=== PATIENT | male | born 1935 | race Asian ===

== ENCOUNTER 2017-04-26 22:12 | Inpatient (IN) | payer MEDICARE, OTHER ==
[~2017-04-26] VITALS: Ht 167.6 cm; Wt 62.7 kg
[~2017-04-26 22:12] MED LIST: DUTA.5 PO; LOSA50TA37 PO
[2017-04-26 22:56] LABS: BASOPHILS # (AUTO) 0.01 K/uL (0.00-0.20); BASOPHILS % (AUTO) 0.1 % (0.0-2.0); EOSINOPHILS # (AUTO) 0.14 K/uL (0.00-0.70); EOSINOPHILS % (AUTO) 1.33 % (1.0-6.0); LYMPHOCYTES # (AUTO) 0.3 K/uL (1.0-4.8); LYMPHOCYTES % (AUTO) 2.5 % (22.0-44.0); MEAN CORPUSCULAR HEMOGLOBIN 33.7 pg (26.0-34.0); MEAN CORPUSCULAR HGB CONC 33.4 G/dL (31.0-37.0); MEAN CORPUSCULAR VOLUME 101 fL (80-100); MONOCYTES # (AUTO) 0.8 K/uL (0.1-1.0); MONOCYTES % (AUTO) 8.2 % (2.0-9.0); NEUTROPHILS # (AUTO) 9.1 K/uL (1.8-7.7); PLATELET COUNT (AUTO) 213 K/uL (150-450); RED BLOOD CELL COUNT(AUTO) 6.22 MIL/uL (4.50-5.90); RED CELL DISTRIBUTION WIDTH 12.8 % (11.5-14.5); WHITE BLOOD COUNT (AUTO) 10.3 K/uL (4.5-11.0)
[2017-04-26 23:01] LABS: CALCIUM, TOTAL 9.7 mg/dL (8.8-10.5); CREATININE 1.95 mg/dL (0.60-1.30); POTASSIUM 4.6 mmol/L (3.5-5.1)
[2017-04-26 23:07] LABS: ALBUMIN 3.9 g/dL (3.4-5.0); BILIRUBIN,TOTAL 0.8 mg/dL (0.1-1.0); TOTAL PROTEIN, SERUM 7.7 g/dL (6.4-8.2)
[2017-04-26 23:09] LABS: HEMATOCRIT 62.8 % (41-53); NEUTROPHILS % (AUTO) 87.9 % (40.0-70.0)
[2017-04-26] MEDS ORDERED: SODIUM CHLORIDE 0.9% 1,000 ML IV ONE (23:15)
[2017-04-26] MEDS ORDERED: ACETAMINOPHEN 325 MG TABLET PO ONE (23:45)
[2017-04-26 23:50] LABS: PROTHROMBIN TIME 10.6 SEC (9.4-11.6)
[2017-04-27 00:03] LABS: ORIG DRAW (USER) PTCARESTAF
[2017-04-27] MEDS ORDERED: 0.9% SODIUM CHLORIDE 10 ML SYRINGE IVP PRN ×2 (00:30→01:30)
[2017-04-27] MEDS ORDERED: ACETAMINOPHEN 325 MG TABLET PO PRN (00:30)
[2017-04-27] MEDS ORDERED: ONDANSETRON HCL 4 MG/2 ML VIAL IVP PRN ×2 (00:30→01:30)
[2017-04-27 00:49] VITALS: BP 129/69
[2017-04-27] MEDS ORDERED: LORazepam 2 MG/ML VIAL IM PRN (01:15)
[2017-04-27] MEDS ORDERED: OxyCODONE HCL/ACETAMINOPHEN 5-325 MG TABLET PO PRN ×2 (01:30)
[2017-04-27] MEDS: SODIUM CHLORIDE 0.9% 1,000 ML IV SCH ×3 (01:41→22:27)
[2017-04-27] MEDS: DOCUSATE SODIUM 100 MG CAPSULE PO SCH ×3 (01:43→20:00)
[2017-04-27 07:36] VITALS: BP 128/77
[2017-04-27] MEDS: PANTOPRAZOLE SODIUM 40 MG/VIAL IVP SCH (07:56)
[2017-04-27 11:46] VITALS: BP 119/71
[2017-04-27] MEDS ORDERED: SODIUM CHLORIDE 0.9% 1,000 ML IV ONE (14:45)
[2017-04-27 15:42] VITALS: BP 123/69
[2017-04-27 20:00] VITALS: BP 120/53
[2017-04-27 23:48] VITALS: BP 132/76
[2017-04-28 04:22] VITALS: BP 137/74
[2017-04-28 06:13] LABS: BASOPHILS % (AUTO) 0.2 % (0.0-2.0); EOSINOPHILS % (AUTO) 6.9 % (1.0-6.0); HEMATOCRIT 52.5 % (41-53); HEMOGLOBIN 17.9 g/dL (13.5-17.5); LYMPHOCYTES # (AUTO) 1.7 K/uL (1.0-4.8); LYMPHOCYTES % (AUTO) 26.1 % (22.0-44.0); MEAN CORPUSCULAR HEMOGLOBIN 34.4 pg (26.0-34.0); MEAN CORPUSCULAR HGB CONC 34.1 G/dL (31.0-37.0); MEAN CORPUSCULAR VOLUME 101 fL (80-100); MONOCYTES # (AUTO) 0.8 K/uL (0.1-1.0); MONOCYTES % (AUTO) 12.1 % (2.0-9.0); NEUTROPHILS # (AUTO) 3.6 K/uL (1.8-7.7); NEUTROPHILS % (AUTO) 54.7 % (40.0-70.0); PLATELET COUNT (AUTO) 199 K/uL (150-450); RED CELL DISTRIBUTION WIDTH 13.4 % (11.5-14.5); WHITE BLOOD COUNT (AUTO) 6.6 K/uL (4.5-11.0)
[2017-04-28 06:33] LABS: CREATININE 1.5 mg/dL (0.60-1.30); POTASSIUM 3.8 mmol/L (3.5-5.1)
[2017-04-28] MEDS: SODIUM CHLORIDE 0.9% 1,000 ML IV SCH ×2 (07:15→16:42)
[2017-04-28] MEDS: PANTOPRAZOLE SODIUM 40 MG/VIAL IVP SCH (08:21)
[2017-04-28] MEDS: DOCUSATE SODIUM 100 MG CAPSULE PO SCH ×2 (08:21→20:43)
[2017-04-28 11:37] VITALS: BP 142/74
[2017-04-28 15:42] VITALS: BP 141/80
[2017-04-28 19:35] VITALS: BP 144/77
[2017-04-28 23:30] VITALS: BP 142/82
[2017-04-29 04:48] VITALS: BP 137/84
[2017-04-29 07:36] VITALS: BP 135/79
[2017-04-29] MEDS: DOCUSATE SODIUM 100 MG CAPSULE PO SCH (07:52)
[2017-04-29] MEDS: PANTOPRAZOLE SODIUM 40 MG/VIAL IVP SCH (07:52)
[2017-04-29] MEDS ORDERED: AMLO2.5T PO (07:56)
== END 2017-04-29 09:05 | disposition home or self-care (01) | DRG 438 ==
LOC: EMS 22:13 → 6N 23:34
PROVIDERS: ADMIT Internal Medicine; ATTEND Internal Medicine
DX: K85.20 Alcohol induced acute pancreatitis without necrosis or infection (principal); N17.0 Acute kidney failure with tubular necrosis; D75.1 Secondary polycythemia; N18.9 Chronic kidney disease, unspecified; I12.9 Hypertensive chronic kidney disease with stage 1 through stage 4 chronic kidney disease, or unspecified chronic kidney disease; F10.20 Alcohol dependence, uncomplicated; Z87.891 Personal history of nicotine dependence
CPT/HCPCS: 74176; 83605; 87040; 93005; 96360; 99285; C9113; J7030

== ENCOUNTER 2018-05-14 08:28 | Inpatient (IN) | payer MEDICARE, OTHER ==
[~2018-05-14] VITALS: Ht 157.5 cm; Wt 61.8 kg
[~2018-05-14 08:28] MED LIST changes: +AMLO2.5T3 PO; -DUTA.5 PO; -LOSA50TA37 PO
[2018-05-14] MEDS ORDERED: ACETAMINOPHEN 1000 MG/ISO-OSM 100 ML IV ONE (09:15)
[2018-05-14] MEDS ORDERED: SODIUM CHLORIDE 0.9% 1,000 ML IV ONE (09:15)
[2018-05-14 09:59] LABS: CALCIUM, TOTAL 8.8 mg/dL (8.8-10.5); CREATININE 1.78 mg/dL (0.60-1.30); POTASSIUM 3.7 mmol/L (3.5-5.1)
[2018-05-14] MEDS ORDERED: CHOL50004 PO (09:59)
[2018-05-14] MEDS ORDERED: ASPI-1182 PO (09:59)
[2018-05-14] MEDS ORDERED: AMLO-512 PO (09:59)
[2018-05-14] MEDS ORDERED: LOSA50TA64 PO (09:59)
[2018-05-14 10:04] LABS: ALBUMIN 2.7 g/dL (3.4-5.0); BILIRUBIN,TOTAL 0.8 mg/dL (0.1-1.0); TOTAL PROTEIN, SERUM 6.5 g/dL (6.4-8.2)
[2018-05-14 10:07] LABS: LACTIC ACID 1.2 mmol/L (0.4-2.0)
[2018-05-14 10:08] LABS: APPEARANCE,URINE CLEAR (CLEAR); BILIRUBIN,URINE NEGATIVE (NEGATIVE); GLUCOSE, URINE (UA) NEGATIVE (NEGATIVE); KETONES,URINE NEGATIVE (NEGATIVE); LEUKOCYTE ESTERASE ,URINE NEGATIVE (NEGATIVE); NITRATE,URINE NEGATIVE (NEGATIVE); OCCULT BLOOD,URINE SMALL (NEGATIVE); PH,URINE 5.5 (5.0-8.0); PROTEIN,URINE SEE CONFIRM (NEGATIVE); UROBILINOGEN,URINE 0.2 mg/dL (<=1.0)
[2018-05-14 10:10] LABS: SULFOSALICYLIC ACID,URINE Trace (Negative)
[2018-05-14 10:12] LABS: BACTERIA,URINE None Seen /HPF (None Seen); RBC,URINE 0-2 /HPF (0-2); WBC,URINE None Seen /HPF (0-5)
[2018-05-14 10:13] LABS: BASOPHILS % (AUTO) 0.4 % (0.0-2.0); EOSINOPHILS % (AUTO) 0.9 % (1.0-6.0); HEMATOCRIT 31.9 % (41-53); HEMOGLOBIN 11.1 g/dL (13.5-17.5); LYMPHOCYTES # (AUTO) 0.7 K/uL (1.0-4.8); LYMPHOCYTES % (AUTO) 8.4 % (22.0-44.0); MEAN CORPUSCULAR HGB CONC 34.9 G/dL (31.0-37.0); MEAN CORPUSCULAR VOLUME 95 fL (80-100); MONOCYTES # (AUTO) 0.8 K/uL (0.1-1.0); NEUTROPHILS # (AUTO) 6.5 K/uL (1.8-7.7); NEUTROPHILS % (AUTO) 80.3 % (40.0-70.0); PLATELET COUNT (AUTO) 140 K/uL (150-450); RED BLOOD CELL COUNT(AUTO) 3.36 MIL/uL (4.50-5.90); RED CELL DISTRIBUTION WIDTH 14.3 % (11.5-14.5)
[2018-05-14] MEDS ORDERED: ACETAMINOPHEN 325 MG TABLET PO PRN (11:15)
[2018-05-14] MEDS ORDERED: ONDANSETRON HCL 4 MG/2 ML VIAL IVP PRN ×2 (11:15→16:30)
[2018-05-14] MEDS ORDERED: 0.9% SODIUM CHLORIDE 10 ML SYRINGE IVP PRN ×2 (11:15→16:30)
[2018-05-14] MEDS ORDERED: AZITHROMYCIN 500 MG/NS 250 ML IV ONE (11:15)
[2018-05-14] MEDS ORDERED: CefTRIAXone 1 GM/DEXTROSE 50 ML IV ONE (11:15)
[2018-05-14 12:32] LABS: INFLUENZA TYPE A NEGATIVE FOR TYPE A (NEGATIVE); INFLUENZA TYPE B NEGATIVE FOR TYPE B (NEGATIVE)
[2018-05-14 14:25] VITALS: BP 132/68
[2018-05-14 15:30] VITALS: BP 136/64
[2018-05-14] MEDS ORDERED: OxyCODONE HCL/ACETAMINOPHEN 5-325 MG TABLET PO PRN ×2 (16:30)
[2018-05-14] MEDS: PANTOPRAZOLE SODIUM 40 MG/VIAL IVP SCH (17:04)
[2018-05-14] MEDS: AmLODIPine BESYLATE 10 MG TABLET PO SCH (17:04)
[2018-05-14] MEDS: ASPIRIN 81 MG EC TABLET PO SCH (17:04)
[2018-05-14 19:18] VITALS: BP 115/66
[2018-05-14] MEDS: ALBUTEROL SULFATE 2.5 MG/0.5 ML NEB SOLUTION NEB SCH (19:56)
[2018-05-14] MEDS: IPRATROPIUM BROMIDE 0.5 MG/2.5 ML NEB SOLUTION NEB SCH (19:56)
[2018-05-14] MEDS: DOCUSATE SODIUM 100 MG CAPSULE PO SCH (20:55)
[2018-05-14] MEDS: LOSARTAN POTASSIUM 50 MG TABLET PO SCH (20:55)
[2018-05-14 23:39] VITALS: BP 145/79
[2018-05-15] MEDS: ALBUTEROL SULFATE 2.5 MG/0.5 ML NEB SOLUTION NEB SCH ×4 (02:50→20:18)
[2018-05-15] MEDS: IPRATROPIUM BROMIDE 0.5 MG/2.5 ML NEB SOLUTION NEB SCH ×4 (02:50→20:18)
[2018-05-15 04:41] VITALS: BP 101/69
[2018-05-15 06:58] LABS: BASOPHILS % (AUTO) 0.4 % (0.0-2.0); EOSINOPHILS % (AUTO) 1.3 % (1.0-6.0); HEMOGLOBIN 10.4 g/dL (13.5-17.5); LYMPHOCYTES # (AUTO) 1.7 K/uL (1.0-4.8); LYMPHOCYTES % (AUTO) 22.5 % (22.0-44.0); MEAN CORPUSCULAR HEMOGLOBIN 32.4 pg (26.0-34.0); MEAN CORPUSCULAR HGB CONC 34.6 G/dL (31.0-37.0); MEAN CORPUSCULAR VOLUME 94 fL (80-100); MONOCYTES % (AUTO) 25.8 % (2.0-9.0); NEUTROPHILS # (AUTO) 3.9 K/uL (1.8-7.7); PLATELET COUNT (AUTO) 148 K/uL (150-450); RED CELL DISTRIBUTION WIDTH 14.4 % (11.5-14.5)
[2018-05-15 07:07] LABS: CALCIUM, TOTAL 8.5 mg/dL (8.8-10.5); CREATININE 1.54 mg/dL (0.60-1.30); POTASSIUM 3.4 mmol/L (3.5-5.1)
[2018-05-15 08:00] VITALS: BP 130/70
[2018-05-15] MEDS ORDERED: SODIUM CHLORIDE 0.9% 250 ML IV ONE (08:14)
[2018-05-15] MEDS: ASPIRIN 81 MG EC TABLET PO SCH (09:01)
[2018-05-15] MEDS: CefTRIAXone 1 GM/DEXTROSE 50 ML IV SCH (09:01)
[2018-05-15] MEDS: AmLODIPine BESYLATE 10 MG TABLET PO SCH (09:01)
[2018-05-15] MEDS: PANTOPRAZOLE SODIUM 40 MG/VIAL IVP SCH (09:01)
[2018-05-15] MEDS: DOCUSATE SODIUM 100 MG CAPSULE PO SCH ×2 (09:01→21:00)
[2018-05-15] MEDS: LOSARTAN POTASSIUM 50 MG TABLET PO SCH ×2 (09:01→21:13)
[2018-05-15] MEDS ORDERED: IPRATROPIUM BROMIDE 0.5 MG/2.5 ML NEB SOLUTION NEB PRN (10:15)
[2018-05-15] MEDS ORDERED: ALBUTEROL SULFATE 2.5 MG/0.5 ML NEB SOLUTION NEB PRN (10:15)
[2018-05-15] MEDS ORDERED: POTASSIUM CHL 10 MEQ/WATER 50 ML IV PRN (10:30)
[2018-05-15] MEDS ORDERED: POTASSIUM CHLORIDE 20 MEQ ER TABLET PO PRN (10:30)
[2018-05-15] MEDS: AZITHROMYCIN 250 MG in SODIUM CHLORIDE 0.9% 150 ML IV SCH (11:14)
[2018-05-15] MEDS: MethylPREDNISolone SOD SUCC 125 MG/2 ML VIAL IVP SCH ×2 (11:14→17:50)
[2018-05-15 11:49] VITALS: BP 147/73
[2018-05-15 16:38] VITALS: BP 142/76
[2018-05-15] MEDS: BENZONATATE 100 MG CAPSULE PO SCH ×2 (17:50→21:12)
[2018-05-15 20:06] VITALS: BP 138/66
[2018-05-15] MEDS: GuaiFENesin SR 600 MG ER TABLET PO SCH (21:12)
[2018-05-16 00:22] VITALS: BP 129/71
[2018-05-16] MEDS: MethylPREDNISolone SOD SUCC 125 MG/2 ML VIAL IVP SCH ×3 (00:38→11:54)
[2018-05-16] MEDS: ALBUTEROL SULFATE 2.5 MG/0.5 ML NEB SOLUTION NEB SCH ×2 (01:39→08:57)
[2018-05-16] MEDS: IPRATROPIUM BROMIDE 0.5 MG/2.5 ML NEB SOLUTION NEB SCH ×2 (01:39→08:57)
[2018-05-16 04:13] VITALS: BP 133/77
[2018-05-16 07:11] LABS: BASOPHILS % (AUTO) 0.2 % (0.0-2.0); EOSINOPHILS % (AUTO) 0 % (1.0-6.0); HEMATOCRIT 33.7 % (41-53); HEMOGLOBIN 11.6 g/dL (13.5-17.5); LYMPHOCYTES # (AUTO) 1.2 K/uL (1.0-4.8); LYMPHOCYTES % (AUTO) 15.8 % (22.0-44.0); MEAN CORPUSCULAR HEMOGLOBIN 32.7 pg (26.0-34.0); MEAN CORPUSCULAR HGB CONC 34.4 G/dL (31.0-37.0); MEAN CORPUSCULAR VOLUME 95 fL (80-100); MONOCYTES # (AUTO) 0.4 K/uL (0.1-1.0); MONOCYTES % (AUTO) 4.6 % (2.0-9.0); NEUTROPHILS # (AUTO) 6.1 K/uL (1.8-7.7); NEUTROPHILS % (AUTO) 79.4 % (40.0-70.0); PLATELET COUNT (AUTO) 177 K/uL (150-450); RED BLOOD CELL COUNT(AUTO) 3.55 MIL/uL (4.50-5.90); RED CELL DISTRIBUTION WIDTH 14.2 % (11.5-14.5)
[2018-05-16 07:15] VITALS: BP 139/73
[2018-05-16 07:26] LABS: CALCIUM, TOTAL 9.3 mg/dL (8.8-10.5); CREATININE 1.58 mg/dL (0.60-1.30); POTASSIUM 4.1 mmol/L (3.5-5.1)
[2018-05-16] MEDS ORDERED: GUAIF600 PO (07:42)
[2018-05-16] MEDS ORDERED: BENZ-51 PO (07:42)
[2018-05-16] MEDS ORDERED: CEPH500 PO (07:42)
[2018-05-16] MEDS ORDERED: AZIT250T9 PO (07:42)
[2018-05-16] MEDS ORDERED: ALBU8HFA IH (07:43)
[2018-05-16] MEDS ORDERED: PRED20 PO (07:44)
[2018-05-16] MEDS ORDERED: OMEP20 PO (07:46)
[2018-05-16] MEDS: PANTOPRAZOLE SODIUM 40 MG/VIAL IVP SCH (08:29)
[2018-05-16] MEDS: CefTRIAXone 1 GM/DEXTROSE 50 ML IV SCH (08:30)
[2018-05-16] MEDS: LOSARTAN POTASSIUM 50 MG TABLET PO SCH (08:31)
[2018-05-16] MEDS: BENZONATATE 100 MG CAPSULE PO SCH (08:31)
[2018-05-16] MEDS: GuaiFENesin SR 600 MG ER TABLET PO SCH (08:31)
[2018-05-16] MEDS: DOCUSATE SODIUM 100 MG CAPSULE PO SCH (08:31)
[2018-05-16] MEDS: AmLODIPine BESYLATE 10 MG TABLET PO SCH (08:31)
[2018-05-16] MEDS: ASPIRIN 81 MG EC TABLET PO SCH (08:31)
[2018-05-16] MEDS: AZITHROMYCIN 250 MG in SODIUM CHLORIDE 0.9% 150 ML IV SCH (10:16)
[2018-05-16 10:57] VITALS: BP 125/71
== END 2018-05-16 12:15 | disposition home or self-care (01) | DRG 682 ==
LOC: EMS 08:29 → 6N 11:42
PROVIDERS: ADMIT Internal Medicine; ATTEND Internal Medicine
DX: N17.0 Acute kidney failure with tubular necrosis (principal); J18.9 Pneumonia, unspecified organism; E43 Unspecified severe protein-calorie malnutrition; J44.1 Chronic obstructive pulmonary disease with (acute) exacerbation; J44.0 Chronic obstructive pulmonary disease with (acute) lower respiratory infection; I10 Essential (primary) hypertension; D64.9 Anemia, unspecified; E87.6 Hypokalemia; F17.210 Nicotine dependence, cigarettes, uncomplicated; Z98.49 Cataract extraction status, unspecified eye; Z87.01 Personal history of pneumonia (recurrent); Z68.24 Body mass index [BMI] 24.0-24.9, adult
CPT/HCPCS: 83605; 87040; 87205; 87804; 93005; 94640; 96365; 96366; 96367; C9113; G0378; J0131; J0456; J0696; J2930; J7030; J7050

== ENCOUNTER 2024-03-12 11:35 | Inpatient (IN) | payer MEDICARE, OTHER ==
[~2024-03-12] VITALS: Ht 157.5 cm; Wt 54.7 kg
[~2024-03-12 11:35] MED LIST changes: +ALBU18HF12 IH; +AMLO-258 PO; -AMLO2.5T3 PO; +ASPI-1444 PO; +AZIT-164 PO; +BENZ-227 PO; +CEPH-558 PO; +CHOL500013 PO; +GUAIF600 PO; +LOSA-382 PO; +OMEP20 PO; +PRED-554 PO
[2024-03-12 14:04] LABS: BASOPHILS % (AUTO) 0.6 % (0.0-2.0); EOSINOPHILS % (AUTO) 2.9 % (1.0-6.0); HEMATOCRIT 38.9 % (41-53); HEMOGLOBIN 12.8 g/dL (13.5-17.5); LYMPHOCYTES # (AUTO) 1.3 K/uL (1.0-4.8); LYMPHOCYTES % (AUTO) 17.8 % (22.0-44.0); MEAN CORPUSCULAR HEMOGLOBIN 30.9 pg (26.0-34.0); MEAN CORPUSCULAR HGB CONC 32.8 G/dL (31.0-37.0); MEAN CORPUSCULAR VOLUME 94 fL (80-100); MONOCYTES # (AUTO) 0.4 K/uL (0.1-1.0); MONOCYTES % (AUTO) 5.2 % (2.0-9.0); NEUTROPHILS # (AUTO) 5.4 K/uL (1.8-7.7); NEUTROPHILS % (AUTO) 73.5 % (40.0-70.0); PLATELET COUNT (AUTO) 387 K/uL (150-450); RED BLOOD CELL COUNT(AUTO) 4.13 MIL/uL (4.50-5.90); RED CELL DISTRIBUTION WIDTH 13.1 % (11.5-14.5); WHITE BLOOD COUNT (AUTO) 7.4 K/uL (4.5-11.0)
[2024-03-12 14:13] LABS: ANION GAP 11 mmol/L (8-16); CARBON DIOXIDE 26 mmol/L (22-29); CHLORIDE 101 mmol/L (98-107); CREATININE 1.86 mg/dL (0.60-1.30); GLOMERULAR FILTR. RATE CALC 34 mL/min (>60); GLUCOSE,RANDOM 169 mg/dL (70-110); SODIUM SERUM 138 mmol/L (136-145); UREA NITROGEN, BLOOD 23 mg/dL (7-18)
[2024-03-12 14:19] LABS: ALANINE AMINOTRANSFERASE 21 U/L (12-78); ALBUMIN 2.8 g/dL (3.4-5.0); ALKALINE PHOSPHATASE 104 U/L (46-116); ASPARTATE AMINOTRANSFERASE 22 U/L (15-37); BILIRUBIN,TOTAL 0.7 mg/dL (0.1-1.0); TOTAL PROTEIN, SERUM 6.5 g/dL (6.4-8.2)
[2024-03-12 14:22] LABS: LACTIC ACID 1.4 mmol/L (0.4-2.0)
[2024-03-12 14:38] LABS: APPEARANCE,URINE CLEAR (CLEAR); BILIRUBIN,URINE NEGATIVE (NEGATIVE); COLOR,URINE COLORLESS (YELLOW); GLUCOSE, URINE (UA) TRACE mg/dL (NEGATIVE); KETONES,URINE NEGATIVE (NEGATIVE); LEUKOCYTE ESTERASE ,URINE NEGATIVE (NEGATIVE); NITRATE,URINE NEGATIVE (NEGATIVE); OCCULT BLOOD,URINE NEGATIVE (NEGATIVE); PH,URINE 7.5 (5.0-8.0); PH,URINE DRUG SCREEN 7.5 (5.0-8.0); PROTEIN,URINE 30-70 mg/dL (NEGATIVE); UROBILINOGEN,URINE <=1.0 mg/dL (<=1.0)
[2024-03-12 14:52] LABS: AMPHET/METH SCREEN,URINE NEGATIVE (NEGATIVE); BARBITURATE SCREEN, URINE NEGATIVE (NEGATIVE); BENZODIAZEPINES SCREEN,URINE NEGATIVE (NEGATIVE); CANNABINOID SCREEN,URINE NEGATIVE (NEGATIVE); COCAINE SCREEN,URINE NEGATIVE (NEGATIVE); METHADONE SCREEN, URINE NEGATIVE (NEGATIVE); OPIATE SCREEN,URINE NEGATIVE (NEGATIVE); PHENCYCLIDINE SCREEN,URINE NEGATIVE (NEGATIVE)
[2024-03-12 14:53] LABS: ALCOHOL, URINE DRUG SCREEN NEGATIVE (NEGATIVE)
[2024-03-12] MEDS: LORazepam 2 MG TABLET PO ONE (18:18)
[2024-03-12] MEDS ORDERED: DOCUSATE SODIUM 100 MG CAPSULE PO PRN (19:30)
[2024-03-12] MEDS ORDERED: ACETAMINOPHEN 325 MG TABLET PO PRN (19:30)
[2024-03-12] MEDS ORDERED: NICOTINE 14 MG/24 HOUR PATCH TD PRN (19:30)
[2024-03-12] MEDS ORDERED: CloNIDine HCL 0.1 MG TABLET PO PRN (19:30)
[2024-03-12] MEDS ORDERED: LOPERAMIDE HCL 2 MG CAPSULE PO PRN (19:30)
[2024-03-12] MEDS ORDERED: ALBUTEROL SULFATE HFA 90 MCG/PUFF 8 GM INHALER IH PRN (19:30)
[2024-03-12] MEDS ORDERED: GuaiFENesin/D-METHORPHAN [SUGAR-FREE] 200-20MG/10 ML SYRUP UDCUP PO PRN (19:30)
[2024-03-12] MEDS ORDERED: ONDANSETRON 4 MG TABLET PO PRN (19:30)
[2024-03-12] MEDS ORDERED: PETROLATUM,WHITE 28 GM JELLY TP PRN (19:30)
[2024-03-12] MEDS: QUEtiapine FUMARATE 100 MG TABLET PO ONE (19:38)
[2024-03-12] MEDS: SODIUM CHLORIDE 0.9% 1,000 ML IV ONE (20:38)
[2024-03-12 21:45] VITALS: BP 132/64; PULSE 97; RESP 18; O2SAT 95
[2024-03-13 00:10] VITALS: BP 140/74; PULSE 98; RESP 18; TEMP 96.4; O2SAT 95
[2024-03-13 04:00] VITALS: BP 105/67; PULSE 83; RESP 19; O2SAT 99
[2024-03-13 07:10] LABS: HEMOGLOBIN A1C 5.8 % (3.8-5.6)
[2024-03-13 07:11] LABS: BASOPHILS % (AUTO) 0.7 % (0.0-2.0); EOSINOPHILS % (AUTO) 4.5 % (1.0-6.0); HEMATOCRIT 40.5 % (41-53); HEMOGLOBIN 13.8 g/dL (13.5-17.5); LYMPHOCYTES # (AUTO) 1.6 K/uL (1.0-4.8); LYMPHOCYTES % (AUTO) 20.9 % (22.0-44.0); MEAN CORPUSCULAR HEMOGLOBIN 31.8 pg (26.0-34.0); MEAN CORPUSCULAR VOLUME 93 fL (80-100); MONOCYTES # (AUTO) 0.8 K/uL (0.1-1.0); MONOCYTES % (AUTO) 9.8 % (2.0-9.0); NEUTROPHILS % (AUTO) 64.1 % (40.0-70.0); PLATELET COUNT (AUTO) 404 K/uL (150-450); RED BLOOD CELL COUNT(AUTO) 4.33 MIL/uL (4.50-5.90); RED CELL DISTRIBUTION WIDTH 13.3 % (11.5-14.5); WHITE BLOOD COUNT (AUTO) 7.8 K/uL (4.5-11.0)
[2024-03-13 07:39] LABS: ALBUMIN 3.1 g/dL (3.4-5.0); BILIRUBIN,TOTAL 0.9 mg/dL (0.1-1.0); CALCIUM, TOTAL 8.6 mg/dL (8.8-10.5); CREATININE 1.55 mg/dL (0.60-1.30); POTASSIUM 3.7 mmol/L (3.5-5.1); THYROID STIMULATING HORMONE 1.24 uIU/mL (0.36-3.74); TOTAL PROTEIN, SERUM 7.2 g/dL (6.4-8.2)
[2024-03-13 08:00] VITALS: BP 127/78; PULSE 82; RESP 18; TEMP 97.2; O2SAT 96
[2024-03-13] MEDS: AmLODIPine BESYLATE 10 MG TABLET PO SCH (09:00)
[2024-03-13] MEDS: CHOLECALCIFEROL (VIT D3) 5,000 [125 MCG] UNITS CAPSULE PO SCH (09:00)
[2024-03-13] MEDS: ASPIRIN 81 MG DR TABLET PO SCH (09:00)
[2024-03-13] MEDS: LORazepam 2 MG/ML VIAL IVP PRN (09:49)
[2024-03-13] MEDS: *CLINICAL-LEVOFLOXACIN IVPB DOSING CLINICAL ONE (13:24)
[2024-03-13] MEDS ORDERED: SODIUM CHLORIDE 0.9% 250 ML IV ONE (14:52)
[2024-03-13] MEDS: LEVOFLOXACIN 500 MG/D5% WATER 100 ML IV ONE (15:02)
[2024-03-13 16:00] VITALS: BP 146/90; PULSE 102; RESP 19; TEMP 97.9; O2SAT 98
[2024-03-13 23:54] VITALS: BP 156/83; PULSE 99; RESP 19; TEMP 98.6; O2SAT 98
[2024-03-14 04:42] VITALS: BP 153/65; PULSE 94; RESP 17; TEMP 98.3; O2SAT 96
[2024-03-14 07:31] LABS: BASOPHILS % (AUTO) 0.3 % (0.0-2.0); EOSINOPHILS % (AUTO) 2.9 % (1.0-6.0); HEMATOCRIT 42.3 % (41-53); HEMOGLOBIN 14.4 g/dL (13.5-17.5); LYMPHOCYTES # (AUTO) 1.3 K/uL (1.0-4.8); LYMPHOCYTES % (AUTO) 12.2 % (22.0-44.0); MEAN CORPUSCULAR HEMOGLOBIN 31.8 pg (26.0-34.0); MEAN CORPUSCULAR VOLUME 94 fL (80-100); MONOCYTES # (AUTO) 0.9 K/uL (0.1-1.0); MONOCYTES % (AUTO) 8.4 % (2.0-9.0); NEUTROPHILS # (AUTO) 8.3 K/uL (1.8-7.7); NEUTROPHILS % (AUTO) 76.2 % (40.0-70.0); PLATELET COUNT (AUTO) 417 K/uL (150-450); RED BLOOD CELL COUNT(AUTO) 4.52 MIL/uL (4.50-5.90); RED CELL DISTRIBUTION WIDTH 12.9 % (11.5-14.5); WHITE BLOOD COUNT (AUTO) 10.9 K/uL (4.5-11.0)
[2024-03-14 07:44] LABS: CALCIUM, TOTAL 9.7 mg/dL (8.8-10.5); CREATININE 1.41 mg/dL (0.60-1.30); POTASSIUM 3.8 mmol/L (3.5-5.1)
[2024-03-14 08:34] VITALS: BP 139/90; PULSE 93; RESP 19; TEMP 98.2; O2SAT 97
[2024-03-14 11:33] VITALS: BP 133/70; PULSE 91; RESP 18; TEMP 98; O2SAT 96
[2024-03-14] MEDS: SODIUM CHLORIDE 0.9% 1,000 ML IV ONE (11:43)
[2024-03-14] MEDS: LEVOFLOXACIN 250 MG/D5% WATER 50 ML IV SCH (12:26)
[2024-03-14 15:43] VITALS: BP 122/62; PULSE 84; RESP 19; TEMP 98.1; O2SAT 97
[2024-03-14 21:44] VITALS: BP 135/80; PULSE 88; RESP 18; TEMP 98.3; O2SAT 98
[2024-03-15 01:09] VITALS: BP 143/72; PULSE 83; RESP 18; TEMP 98.1; O2SAT 97
[2024-03-15 04:04] VITALS: BP 116/63; PULSE 93; RESP 18; TEMP 97.8; O2SAT 99
[2024-03-15 07:30] LABS: BASOPHILS % (AUTO) 0.5 % (0.0-2.0); EOSINOPHILS % (AUTO) 3.4 % (1.0-6.0); HEMATOCRIT 42.2 % (41-53); HEMOGLOBIN 14.2 g/dL (13.5-17.5); LYMPHOCYTES # (AUTO) 2.1 K/uL (1.0-4.8); LYMPHOCYTES % (AUTO) 20.9 % (22.0-44.0); MEAN CORPUSCULAR HEMOGLOBIN 31.7 pg (26.0-34.0); MEAN CORPUSCULAR HGB CONC 33.6 G/dL (31.0-37.0); MEAN CORPUSCULAR VOLUME 94 fL (80-100); MONOCYTES # (AUTO) 0.7 K/uL (0.1-1.0); MONOCYTES % (AUTO) 6.9 % (2.0-9.0); NEUTROPHILS # (AUTO) 6.9 K/uL (1.8-7.7); NEUTROPHILS % (AUTO) 68.3 % (40.0-70.0); PLATELET COUNT (AUTO) 385 K/uL (150-450); RED BLOOD CELL COUNT(AUTO) 4.47 MIL/uL (4.50-5.90); RED CELL DISTRIBUTION WIDTH 13.3 % (11.5-14.5); WHITE BLOOD COUNT (AUTO) 10.2 K/uL (4.5-11.0)
[2024-03-15 07:48] LABS: CALCIUM, TOTAL 8.8 mg/dL (8.8-10.5); CREATININE 1.61 mg/dL (0.60-1.30); POTASSIUM 4.3 mmol/L (3.5-5.1)
[2024-03-15 08:47] VITALS: BP 116/50; PULSE 83; RESP 19; TEMP 98; O2SAT 98
[2024-03-15 11:46] VITALS: BP 102/60; PULSE 96; RESP 19; TEMP 97.8; O2SAT 97
[2024-03-15] MEDS ORDERED: LEVO750T68 PO (12:10)
[2024-03-15] MEDS ORDERED: SODIUM CHLORIDE 0.9% 500 ML IV ONE (13:55)
[2024-03-15 15:24] VITALS: BP 117/70; PULSE 82; RESP 18; TEMP 98; O2SAT 98
== END 2024-03-15 17:00 | disposition home health service (06) | DRG 52 ==
LOC: EMS 11:36 → EDH 19:39 → 5S 21:30
PROVIDERS: ADMIT Internal Medicine; ATTEND Internal Medicine
DX: G93.41 Metabolic encephalopathy (principal); N17.0 Acute kidney failure with tubular necrosis; E86.0 Dehydration; J44.9 Chronic obstructive pulmonary disease, unspecified; Z60.2 Problems related to living alone; I12.9 Hypertensive chronic kidney disease with stage 1 through stage 4 chronic kidney disease, or unspecified chronic kidney disease; R73.9 Hyperglycemia, unspecified; N18.9 Chronic kidney disease, unspecified; J98.4 Other disorders of lung; Z79.82 Long term (current) use of aspirin; Z87.891 Personal history of nicotine dependence; Z79.899 Other long term (current) drug therapy
CPT/HCPCS: 70450; 71045; 76770; 80048; 80053; 80061; 80307; 81003; 83036; 83605; 84443; 85025; 92610; 93005; 97116; 97163; 97166; 97530; 99285; G0480; J1956; J2060; J7030; J7040; J7050; 36415-L1; 36415-TC

== ENCOUNTER 2024-07-12 14:55 | Inpatient (IN) | payer MEDICARE, OTHER ==
[~2024-07-12] VITALS: Ht 157.5 cm; Wt 57.3 kg
[~2024-07-12 14:55] MED LIST changes: -AMLO-258 PO; -AZIT-164 PO; -BENZ-227 PO; -CEPH-558 PO; -GUAIF600 PO; +LEVO750T68 PO; -LOSA-382 PO; -OMEP20 PO; -PRED-554 PO
[2024-07-12 15:42] LABS: BASOPHILS % (AUTO) 0.5 % (0.0-2.0); EOSINOPHILS % (AUTO) 4.1 % (1.0-6.0); HEMATOCRIT 37.6 % (41-53); HEMOGLOBIN 12.3 g/dL (13.5-17.5); LYMPHOCYTES # (AUTO) 1.3 K/uL (1.0-4.8); LYMPHOCYTES % (AUTO) 16.9 % (22.0-44.0); MEAN CORPUSCULAR HEMOGLOBIN 30.9 pg (26.0-34.0); MEAN CORPUSCULAR HGB CONC 32.9 G/dL (31.0-37.0); MEAN CORPUSCULAR VOLUME 94 fL (80-100); MONOCYTES # (AUTO) 0.6 K/uL (0.1-1.0); MONOCYTES % (AUTO) 7.7 % (2.0-9.0); NEUTROPHILS # (AUTO) 5.6 K/uL (1.8-7.7); NEUTROPHILS % (AUTO) 70.8 % (40.0-70.0); PLATELET COUNT (AUTO) 275 K/uL (150-450); RED BLOOD CELL COUNT(AUTO) 3.99 MIL/uL (4.50-5.90); RED CELL DISTRIBUTION WIDTH 13.2 % (11.5-14.5); WHITE BLOOD COUNT (AUTO) 7.9 K/uL (4.5-11.0)
[2024-07-12 15:53] LABS: ANION GAP 8 mmol/L (8-16); CALCIUM, TOTAL 8.9 mg/dL (8.8-10.5); CARBON DIOXIDE 27 mmol/L (22-29); CHLORIDE 106 mmol/L (98-107); CREATININE 2.45 mg/dL (0.60-1.30); GLOMERULAR FILTR. RATE CALC 25 mL/min (>60); GLUCOSE,RANDOM 139 mg/dL (70-110); POTASSIUM 4.4 mmol/L (3.5-5.1); SODIUM SERUM 141 mmol/L (136-145); UREA NITROGEN, BLOOD 32 mg/dL (7-18)
[2024-07-12 15:55] LABS: PROTHROMBIN TIME 10.4 SEC (9.4-11.6)
[2024-07-12 16:02] LABS: CREATINE KINASE, TOTAL ONLY 64 U/L (39-308); TROPONIN I-HIGH SENSITIVITY 12 ng/L (<76)
[2024-07-12 16:06] LABS: B-TYPE NATRIURETIC PEPTIDE 55 pg/mL (0-100)
[2024-07-12] MEDS ORDERED: ONDANSETRON HCL 4 MG/2 ML VIAL IVP PRN (16:15)
[2024-07-12] MEDS ORDERED: ACETAMINOPHEN 325 MG TABLET PO PRN (16:15)
[2024-07-12] MEDS: SODIUM CHLORIDE 0.9% 1,000 ML IV ONE (16:18)
[2024-07-12] MEDS ORDERED: LOSA-382 PO (16:27)
[2024-07-12] MEDS ORDERED: FLUT16SP NASAL (16:27)
[2024-07-12] MEDS ORDERED: FINA5TAB41 PO (16:27)
[2024-07-12] MEDS ORDERED: HYDR12.56 PO (16:27)
[2024-07-12] MEDS ORDERED: CLOT15CR23 TP (16:27)
[2024-07-12] MEDS ORDERED: TRAZ-252 PO (16:27)
[2024-07-12] MEDS ORDERED: TAMS0.4C94 PO (16:27)
[2024-07-12] MEDS ORDERED: ICOS1CAP2 PO (16:27)
[2024-07-12] MEDS ORDERED: MECL-302 PO (16:27)
[2024-07-12] MEDS ORDERED: AMLO10TA55 PO (16:27)
[2024-07-12] MEDS ORDERED: SIMV-43 PO (16:27)
[2024-07-12 18:34] LABS: TROPONIN I-HIGH SENSITIVITY 14 ng/L (<76)
[2024-07-12 18:47] LABS: APPEARANCE,URINE CLEAR (CLEAR); BILIRUBIN,URINE NEGATIVE (NEGATIVE); COLOR,URINE COLORLESS (YELLOW); GLUCOSE, URINE (UA) NEGATIVE (NEGATIVE); KETONES,URINE NEGATIVE (NEGATIVE); LEUKOCYTE ESTERASE ,URINE NEGATIVE (NEGATIVE); NITRATE,URINE NEGATIVE (NEGATIVE); OCCULT BLOOD,URINE NEGATIVE (NEGATIVE); PROTEIN,URINE 30-70 mg/dL (NEGATIVE); SPECIFIC GRAVITIY, URINE 1.009 (1.003-1.030); UROBILINOGEN,URINE <=1.0 mg/dL (<=1.0)
[2024-07-12] MEDS: DOCUSATE SODIUM 100 MG CAPSULE PO SCH (20:54)
[2024-07-13] VITALS (8 sets, daily range): BP systolic 108–145; BP diastolic 54–76; PULSE 65–89; RESP 18–19; TEMP 97.4–98.5; O2SAT 98–100
[2024-07-13] MEDS: HEPARIN SODIUM,PORCINE 5,000 UNITS/ML VIAL SQ SCH (00:06)
[2024-07-13 03:36] LABS: CREATININE,URINE RANDOM 83.2 mg/dL (30.0-125.0)
[2024-07-13 07:30] LABS: BASOPHILS % (AUTO) 0.6 % (0.0-2.0); EOSINOPHILS % (AUTO) 6.3 % (1.0-6.0); HEMATOCRIT 37.1 % (41-53); HEMOGLOBIN 12.5 g/dL (13.5-17.5); LYMPHOCYTES # (AUTO) 1.9 K/uL (1.0-4.8); LYMPHOCYTES % (AUTO) 24.1 % (22.0-44.0); MEAN CORPUSCULAR HEMOGLOBIN 31.8 pg (26.0-34.0); MEAN CORPUSCULAR HGB CONC 33.6 G/dL (31.0-37.0); MEAN CORPUSCULAR VOLUME 95 fL (80-100); MONOCYTES # (AUTO) 0.5 K/uL (0.1-1.0); MONOCYTES % (AUTO) 6.7 % (2.0-9.0); NEUTROPHILS % (AUTO) 62.3 % (40.0-70.0); PLATELET COUNT (AUTO) 286 K/uL (150-450); RED BLOOD CELL COUNT(AUTO) 3.92 MIL/uL (4.50-5.90); RED CELL DISTRIBUTION WIDTH 13.1 % (11.5-14.5)
[2024-07-13 08:02] LABS: CALCIUM, TOTAL 8.5 mg/dL (8.8-10.5); CREATININE 1.85 mg/dL (0.60-1.30); MAGNESIUM 2.1 mg/dL (1.80-2.40); POTASSIUM 4.1 mmol/L (3.5-5.1)
[2024-07-13] MEDS ORDERED: MECLIZINE HCL 25 MG TABLET PO PRN (12:15)
[2024-07-13] MEDS: SODIUM CHLORIDE 0.9% 1,000 ML IV SCH (15:27)
[2024-07-13] MEDS: CLOTRIMAZOLE 1% 15 GM CREAM TP SCH (21:05)
[2024-07-13] MEDS: SIMVASTATIN 20 MG TABLET PO SCH (21:08)
[2024-07-13] MEDS: TraZODone HCL 50 MG TABLET PO SCH (21:08)
[2024-07-14] VITALS (8 sets, daily range): BP systolic 110–177; BP diastolic 56–92; PULSE 61–76; RESP 17–18; TEMP 97.8–98.3; O2SAT 98–100
[2024-07-14] MEDS: ASPIRIN 81 MG DR TABLET PO SCH (08:18)
[2024-07-14] MEDS: FINASTERIDE 5 MG TABLET PO SCH (08:19)
[2024-07-14] MEDS: TAMSULOSIN HCL 0.4 MG CAPSULE PO SCH (08:19)
[2024-07-14] MEDS ORDERED: [UNRECOGNIZED DRUG - OTHER] PO SCH (09:00)
[2024-07-14] MEDS: SODIUM CHLORIDE 0.9% 1,000 ML IV ONE (11:50)
[2024-07-14] MEDS: HydrALAZINE HCL 10 MG TABLET PO PRN (14:53)
[2024-07-15 00:05] VITALS: BP 180/86; PULSE 73; RESP 18; TEMP 97.9; O2SAT 99
[2024-07-15 05:22] VITALS: BP 158/64; PULSE 71; RESP 18; TEMP 97.9; O2SAT 98
[2024-07-15 07:01] LABS: CALCIUM, TOTAL 8.9 mg/dL (8.8-10.5); CREATININE 1.46 mg/dL (0.60-1.30); POTASSIUM 4.1 mmol/L (3.5-5.1)
[2024-07-15 07:40] VITALS: BP 156/72; PULSE 72; RESP 18; TEMP 98; O2SAT 98
[2024-07-15 11:07] VITALS: BP 155/75; PULSE 75; RESP 18; TEMP 98.1; O2SAT 99
[2024-07-15] MEDS: AmLODIPine BESYLATE 10 MG TABLET PO SCH (13:15)
[2024-07-15 15:26] VITALS: BP 130/78; PULSE 83; RESP 18; TEMP 98; O2SAT 98
== END 2024-07-15 17:10 | disposition home or self-care (01) | DRG 73 ==
LOC: EMS 14:55 → EDH 16:14 → 5S 22:15
PROVIDERS: ADMIT Internal Medicine; ATTEND Internal Medicine
DX: G90.89 Other disorders of autonomic nervous system (principal); N17.0 Acute kidney failure with tubular necrosis; I95.9 Hypotension, unspecified; N18.9 Chronic kidney disease, unspecified; R56.9 Unspecified convulsions; I12.9 Hypertensive chronic kidney disease with stage 1 through stage 4 chronic kidney disease, or unspecified chronic kidney disease; F17.210 Nicotine dependence, cigarettes, uncomplicated; N40.0 Benign prostatic hyperplasia without lower urinary tract symptoms; G47.00 Insomnia, unspecified; Z79.899 Other long term (current) drug therapy
CPT/HCPCS: 71045; 80048; 81003; 82550; 82570; 83735; 83880; 84300; 84484; 85025; 85610; 85730; 93005; 93306; 95816; 96360; 97116; 97162; 99291; J1644; J7030; 36415-L1; 36415-TC